=== PATIENT | female | born 1970 | race African-American/Black ===

== ENCOUNTER 2017-05-20 14:10 | Emergency (ER) | payer SELFPAY ==
[~2017-05-20] VITALS: Ht 157.5 cm; Wt 68.0 kg
== END 2017-05-20 16:44 | disposition left against medical advice (07) ==
LOC: ER 14:10
DX: J02.9 Acute pharyngitis, unspecified (principal)

== ENCOUNTER 2017-10-10 19:17 | Emergency (ER) | payer SELFPAY ==
[~2017-10-10] VITALS: Ht 157.5 cm; Wt 68.0 kg
--- OUTSIDE RECORDS SUMMARY | 2017-10-10 19:19 | XMS REPORT | Clinical Summary ---
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 Disp. Refills Start End Date Status Date cephalexin (KEFLEX) 500 Take 1 capsule (500 mg 20 capsule 0 10/01/19 10/11/19 MG capsule total) by mouth 2 (two) 17 17 times a day for 10 days. ondansetron ODT (ZOFRAN Take 1 tablet (4 mg 10 tablet 0 10/01/19 ODT) 4 MG disintegrating total) by mouth every 8 17 17 tablet (eight) hours as needed for nausea or vomiting for up to 30 days. naproxen (NAPROSYN) 500 Take 1 tablet (500 mg 30 tablet 0 11/25/19 12/25/19 MG tablet total) by mouth 2 (two) 17 17 times a day as needed for mild pain for up to 30 days. Active Problems Not on file Encounters Date Type Specialty Care Team Description 11/24/2016 Emergency Emergency Medicine Wali Richard, Acute wrist pain, left DO (Primary Dx) after 10/09/2016 Social History Tobacco Use Types Packs/Day Years Used Date Current Every Day Smoker 0.5 Alcohol Use Drinks/Week oz/Week Comments Yes Sex Assigned at Date Recorded Not on file Last Filed Vital Signs Vital Sign Reading Time Taken Blood Pressure 103/71 11/24/2016 4:06 PM CDT Pulse 71 11/24/2016 4:06 PM CDT Temperature 36.4 C (97.5 F) 11/24/2016 4:06 PM CDT Respiratory Rate 16 11/24/2016 4:06 PM CDT Oxygen Saturation 100% 11/24/2016 4:06 PM CDT Inhaled Oxygen - - Concentration Weight - - Height 157.5 cm (5' 2") 11/24/2016 1:07 PM CDT Body Mass Index - - Plan of Treatment Health Maintenance Due Date Last Done Comments CERVICAL CANCER SCREENING 1993 INFLUENZA VACCINE 12/09/2017 Results * XR Wrist 3+ Vw Left (11/24/2016 2:57 PM) Specimen Performing Laboratory [facility] [address] [place] [address] Narrative EXAMINATION:XR WRIST 3VW LEFT CLINICAL HISTORY:BONE PAINWRIST COMPARISON:None. TECHNIQUE: Anatomy imaged: Left wrist 4 views of the wrist were performed in the AP, AP with ulnar deviation, oblique , and lateral projections. FINDINGS: No acute fracturing, dislocation, bone destruction, or periosteal reaction is noted. No soft tissue swelling is noted.. No abnormality of the radiocarpal, intercarpal, or carpometacarpal junctions is seen. IMPRESSION: No acute bony abnormality. [facility]-[id number] Procedure Note Interface, Radiology Results Incoming - 11/24/2016 3:30 PM CDT EXAMINATION: XR WRIST 3 VW LEFT CLINICAL HISTORY: BONE PAIN WRIST COMPARISON: None. TECHNIQUE: Anatomy imaged: Left wrist 4 views of the wrist were performed in the AP, AP with ulnar deviation, oblique , and lateral projections. FINDINGS: No acute fracturing, dislocation, bone destruction, or periosteal reaction is noted. No soft tissue swelling is noted.. No abnormality of the radiocarpal, intercarpal, or carpometacarpal junctions is seen. IMPRESSION: No acute bony abnormality. [id number] after 10/09/2016
--- OUTSIDE RECORDS SUMMARY | 2017-10-10 19:19 | XMS REPORT ---
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 Allergies, Adverse Reactions, Alerts This patient has no known allergies or adverse reactions. Medications This patient has no known medications. Results Test Description Test Time Test Comments Text Results Atomic Results Result Comments URINALYSIS WITH MICROSCOPIC 2016-09-28 16:11:00 Color (test code=UCOLR) YELLOW Clarity (test code=UCLAR) CLEAR Glucose (test code=UGLUC) NEGATIVE NEGATIVE Bilirubin (test code=UBILI) NEGATIVE NEGATIVE Ketones (test code=UKET) NEGATIVE NEGATIVE Specific [place] (test code=USPGR) 1.015 1.005-1.030 Blood (test code=UBLD) TRACE-INTACT NEGATIVE PH (test code=UPH) 5.0 4.5-8.0 Protein (test code=UPROT) NEGATIVE NEGATIVE Urobilinogen (test code=U UROB) 0.2 >0.2 Nitrite (test code=UNITR) NEGATIVE NEGATIVE Leukocyte Esterase (test code=ULEUK) SMALL NEGATIVE WBC (test code=WBCUR) 0-5 0-5 RBC (test code=RBCUR) 0-5 0-5 Epithial Cells (test code=U EPI) 0-10 0-10 Bacteria (test code=UBACT) Trace None Seen,Trace
[2017-10-10 20:33] LABS: BILIRUBIN,URINE NEGATIVE (NEGATIVE); CLARITY,URINE CLEAR (CLEAR); COLOR,URINE YELLOW (YELLOW); KETONES,URINE NEGATIVE (NEGATIVE); LEUKOCYTE ESTERASE ,URINE 1+ (NEGATIVE); NITRITE,URINE NEGATIVE (NEGATIVE); PROTEIN,URINE DIPSTICK NEGATIVE (NEGATIVE); URINE UROBILINOGEN 0.2 mg/dL (0.2 - 1)
[2017-10-10 20:43] LABS: EPITHELIAL CELLS,URINE MODERATE /LPF
[2017-10-10] MEDS ORDERED: ONDANSETRON HCL 4 MG ORAL DISINTEGRATING TAB ONE ×2 (20:44→20:46)
[2017-10-10] MEDS ORDERED: CEFTRIAXONE SOD 250 MG VIAL ONE (20:44)
[2017-10-10] MEDS ORDERED: METRONIDAZOLE 500 MG TAB PO ONE (21:00)
[2017-10-10] MEDS ORDERED: ONDANSETRON HCL 4 MG ORAL DISINTEGRATING TAB PO ONE (21:00)
[2017-10-10] MEDS ORDERED: CEFTRIAXONE SOD 250 MG VIAL IM ONE (21:00)
[2017-10-10 21:09] VITALS: BP 112/89
[2017-10-10] MEDS ORDERED: ZOFRAN ODT4 MG SL (21:09)
[2017-10-10] MEDS ORDERED: KEFLEX500 MG PO (21:09)
== END 2017-10-10 21:31 | disposition home or self-care (01) ==
LOC: ER 19:17
DX: R10.2 Pelvic and perineal pain (principal); N89.8 Other specified noninflammatory disorders of vagina; N39.0 Urinary tract infection, site not specified
CPT/HCPCS: 81001; 81025; 87086; 99283; J0696

== ENCOUNTER 2018-01-27 14:23 | Emergency (ER) | payer SELFPAY ==
[~2018-01-27] VITALS: Ht 157.5 cm; Wt 52.2 kg
[~2018-01-27 14:23] MED LIST: KEFLEX500 MG PO; ZOFRAN ODT4 MG SL
== END 2018-01-27 14:24 | disposition left against medical advice (07) ==
LOC: ER 14:24
DX: M25.532 Pain in left wrist (principal)